=== PATIENT | female | born 1950 | race Two or more races ===

== ENCOUNTER 2020-03-02 14:49 | Emergency (ER) | payer MEDICARE ==
[~2020-03-02] VITALS: Ht 157.5 cm; Wt 81.8 kg
--- NOTE | 2020-03-02 15:20 | NUR ---
TASK RN: PT WC'D TO ROOM 4 W/ C/O LOWER R HIP/LEG PAIN STARTED 3 WEEKS AGO AND WORSENED OVER THE LAST 2 DAYS. PT STATES IT STARTED W/ BILAT HIP PAIN BUT NOW IS ONLY R SIDED. PT STATES SHE INITIALLY BENT DOWN TO PICK SOMETHING UP AND THAT'S WHEN THE PAIN STARTED. STATES THAT THIS AM SHE HEARD A CLICKING SOUND LIKE SOMETHING WAS MOVING IN HER LOWER BACK. STATES PAIN RADIATES TO R LEG AND UPPER BACK. PT DENIES ANY OTHER SX. [facility] NADN. MONITORS APPLIED. WARM BLANKET PROVIDED. PT POSITIONED ON GURNEY FOR COMFORT.
--- NOTE | 2020-03-02 15:45 | NUR ---
CONTACT WITH PT, NO ACUTE DISTRESS NOTED. PT LAYING ON GURNEY. PTS DAUGHTER AT BEDSIDE. WAITING FOR ORDERS. NO NEEDS EXPRESSED AT THIS TIME.
[2020-03-02] MEDS ORDERED: DIAZEPAM 5 MG TABLET ONE (15:47)
[2020-03-02] MEDS ORDERED: KETOROLAC 30 MG/1 ML ONE (15:47)
[2020-03-02] MEDS ORDERED: KETOROLAC 30 MG/1 ML IM ONE (16:00)
[2020-03-02] MEDS ORDERED: DIAZEPAM 5 MG TABLET PO ONE (16:00)
--- NOTE | 2020-03-02 17:05 | NUR ---
PT WITH PAIN DECREASED TO 2/10, ABLE TO MOVE EASIER. NO IV TO DC, REVIEWED DC INSTRUCTIONS WITH PT AND PTS DAUGHTER. UNDERSTANDING VERBALIZED.
[2020-03-02 17:10] VITALS: BP 127/81
== END 2020-03-02 17:12 | disposition home or self-care (01) ==
LOC: ED 15:35
DX: S39.012A Strain of muscle, fascia and tendon of lower back, initial encounter (principal); M51.36 Other intervertebral disc degeneration, lumbar region; W45.8XXA Other foreign body or object entering through skin, initial encounter; Y93.89 Activity, other specified; Y92.89 Other specified places as the place of occurrence of the external cause; Y99.8 Other external cause status
CPT/HCPCS: 72110; 96372; 99283; J1885

== ENCOUNTER 2020-08-29 12:46 | Emergency (ER) | payer MEDICARE ==
[~2020-08-29] VITALS: Ht 160 cm; Wt 81.5 kg
--- NOTE | 2020-08-29 13:28 | NUR ---
BREAK RN: DAVID AT BEDSIDE FOR EVALUATION.
--- NOTE | 2020-08-29 13:29 | NUR ---
BREAK RN: PATIENT DIAGNOSED WITH COVID . PATIENT C/O COUGH, SOB AND FATIGUE. NADN, PATIENT'S O2 SATURATION IS 92% ON RA. CALL LIGHT WITHIN REACH.
--- NOTE | 2020-08-29 13:46 | NUR ---
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
[2020-08-29 14:10] LABS: ALANINE AMINOTRANSFERASE 114 U/L (12-78); ANION GAP 10 mmol/L (5-15); CALCIUM 8.7 mg/dL (8.5-10.1); CHLORIDE 105 mmol/L (98-107); CREATININE 0.61 mg/dL (0.55-1.02)
[2020-08-29 14:13] LABS: ALKALINE PHOSPHATASE 92 U/L (45-117); BILIRUBIN,TOTAL 0.5 mg/dL (0.2-1.0); TOTAL PROTEIN 7.3 g/dL (6.4-8.2)
[2020-08-29 14:14] LABS: BASOPHILS % (AUTO) 0 % (0-1); EOSINOPHILS % (AUTO) 0 % (1-7); LYMPHOCYTES % (AUTO) 25 % (22-44); MEAN CORPUSCULAR HEMOGLOBIN 31.1 pg (27.0-34.8); MEAN CORPUSCULAR HGB CONC 33.6 g/dL (32.4-35.8); MEAN PLATELET VOLUME 8.9 fL (7.4-10.4); MONOCYTES % (AUTO) 12 % (2-9); NEUTROPHILS % (AUTO) 64 % (42-75); PLATELET COUNT 172 x10^3/uL (130-400); RED BLOOD COUNT 4.67 x10^6/uL (3.82-5.3); RED CELL DISTRIBUTION WIDTH 12.9 % (9.6-15.2)
[2020-08-29 14:16] LABS: MD NO
[2020-08-29 15:40] VITALS: BP 127/21
--- NOTE | 2020-08-29 15:48 | NUR ---
Patient/Caregiver given discharge instructions and they have confirmed that they understand the instructions. Patient ambulatory with steady gait.
== END 2020-08-29 15:49 | disposition home or self-care (01) ==
LOC: ED 15:30
DX: U07.1 COVID-19 (principal); J06.9 Acute upper respiratory infection, unspecified; J12.9 Viral pneumonia, unspecified; R50.9 Fever, unspecified; R06.02 Shortness of breath; R53.83 Other fatigue
CPT/HCPCS: 36415; 71045; 80053; 83605; 84145; 85025; 86140; 87040; 93005; 99285

== ENCOUNTER 2020-08-29 22:26 | Inpatient (IN) | payer MEDICARE ==
[~2020-08-29] VITALS: Ht 160 cm; Wt 80.6 kg
--- NOTE | 2020-08-29 22:45 | NUR ---
pt moved to room 35 via wheelchair. placed on cr monitor, and remains on o2 nc 2 lpm for low o2 sats at home and in triage. less than 90%. MD to bedside to eval pt.
[2020-08-29] MEDS ORDERED: CEFTRIAXONE PMX 1GM/50ML 50 ML IVPB ONE (23:00)
[2020-08-29] MEDS ORDERED: DEXAMETHASONE 4 MG/ML, 1ML IV ONE (23:00)
[2020-08-29] MEDS ORDERED: AZITHROMYCIN 500 MG in SODIUM CHLORIDE 0.9% 250 ML IV ONE (23:00)
[2020-08-29] MEDS ORDERED: SODIUM CHLORIDE 0.9% 1,000 ML IV ONE (23:00)
[2020-08-29] MEDS ORDERED: SODIUM CHLORIDE FLUSH 10ML SYR IVF PRN (23:00)
--- NOTE | 2020-08-29 23:07 | NUR ---
piv started to right hand x1 attempt. pt tolerated well, piv flushed easy, and no swelling, taped and secured.
[2020-08-29] MEDS ORDERED: CEFTRIAXONE PMX 1GM/50ML 50 ML ONE (23:11)
[2020-08-29] MEDS ORDERED: DEXAMETHASONE 4 MG/ML, 5ML ONE (23:11)
--- NOTE | 2020-08-29 23:19 | NUR ---
antibiotics started via PIV, pt awake and alert, no acute distress at this time.
[2020-08-29] MEDS ORDERED: PHARMACY MAY ADJ FOR RENAL FX MC PRN (23:30)
[2020-08-29] MEDS ORDERED: ONDANSETRON 2MG/ML, 2ML IVPush PRN (23:30)
[2020-08-29] MEDS ORDERED: MELATONIN 5 MG TABLET PO PRN (23:30)
[2020-08-29] MEDS ORDERED: PROCHLORPERAZINE 10MG TABLET PO PRN (23:30)
[2020-08-29] MEDS ORDERED: LIDODERM 5% PATCH TD PRN (23:30)
[2020-08-29] MEDS ORDERED: LABETALOL 5MG/ML, 20ML IVPush PRN (23:30)
[2020-08-29] MEDS ORDERED: DOCUSATE 100 MG CAPSULE PO PRN (23:30)
--- NOTE | 2020-08-29 23:46 | NUR ---
report called to floor RN, and pt a&ox4, calm and comfortable, good aeration, and good oxygenation, remains on o2 2lpm, and transported to floor via gurney.
[2020-08-29 23:57] VITALS: BP 114/78
[2020-08-30 00:23] VITALS: BP 114/78
[2020-08-30] MEDS: HEPARIN 5,000 UNITS/ML, 1ML SQ SCH ×3 (00:25→16:00)
[2020-08-30 02:00] LABS: RAPID INFLUENZA A Negative (Negative); RAPID INFLUENZA B Negative (Negative)
[2020-08-30 05:46] LABS: BASOPHILS % (AUTO) 1 % (0-1); EOSINOPHILS % (AUTO) 0 % (1-7); LYMPHOCYTES % (AUTO) 14 % (22-44); MEAN CORPUSCULAR HEMOGLOBIN 31.4 pg (27.0-34.8); MEAN CORPUSCULAR HGB CONC 33.9 g/dL (32.4-35.8); MEAN PLATELET VOLUME 8.7 fL (7.4-10.4); MONOCYTES % (AUTO) 6 % (2-9); NEUTROPHILS % (AUTO) 79 % (42-75); PLATELET COUNT 175 x10^3/uL (130-400); RED BLOOD COUNT 4.43 x10^6/uL (3.82-5.3); RED CELL DISTRIBUTION WIDTH 12.9 % (9.6-15.2)
[2020-08-30 05:52] LABS: MD NO
[2020-08-30 05:58] LABS: INTERNATIONAL NORMALIZED RATIO 0.99 (0.93-1.1); PROTHROMBIN TIME 10.5 Seconds (9.6-11.5)
[2020-08-30 06:02] LABS: ALBUMIN 2.7 g/dL (3.4-5.0); ANION GAP 8 mmol/L (5-15); CALCIUM 8.4 mg/dL (8.5-10.1); CHLORIDE 108 mmol/L (98-107)
[2020-08-30 06:13] LABS: ALANINE AMINOTRANSFERASE 101 U/L (12-78); ALKALINE PHOSPHATASE 89 U/L (45-117); BILIRUBIN,TOTAL 0.4 mg/dL (0.2-1.0); CREATINE KINASE, TOTAL 29 U/L (26-192); CREATININE 0.53 mg/dL (0.55-1.02); TOTAL PROTEIN 7.2 g/dL (6.4-8.2)
[2020-08-30 06:45] VITALS: BP 116/76
[2020-08-30 06:45] LABS: HCT (SEDRATE) 41.1 % (34.6-47.8)
[2020-08-30] MEDS: ZINC SULFATE 220 MG CAPSULE PO SCH (08:45)
[2020-08-30] MEDS: CHOLECALCIFEROL 5,000u TAB PO SCH (08:45)
[2020-08-30] MEDS: DEXAMETHASONE 4 MG/ML, 1ML IVPush SCH (08:45)
[2020-08-30] MEDS: ASCORBIC ACID 500 MG TABLET PO SCH ×2 (08:45→21:12)
[2020-08-30 12:15] VITALS: BP 119/79
[2020-08-30 18:53] VITALS: BP 113/61
[2020-08-30] MEDS: CEFTRIAXONE PMX 1GM/50ML 50 ML IVPB SCH (21:13)
[2020-08-31] MEDS: HEPARIN 5,000 UNITS/ML, 1ML SQ SCH ×4 (00:45→22:54)
[2020-08-31 01:21] VITALS: BP 124/74
[2020-08-31 05:39] LABS: BASOPHILS % (AUTO) 0 % (0-1); EOSINOPHILS % (AUTO) 0 % (1-7); LYMPHOCYTES % (AUTO) 16 % (22-44); MD NO; MEAN CORPUSCULAR HEMOGLOBIN 31.3 pg (27.0-34.8); MEAN CORPUSCULAR HGB CONC 33.7 g/dL (32.4-35.8); MEAN PLATELET VOLUME 8.9 fL (7.4-10.4); MONOCYTES % (AUTO) 11 % (2-9); NEUTROPHILS % (AUTO) 73 % (42-75); PLATELET COUNT 217 x10^3/uL (130-400); RED CELL DISTRIBUTION WIDTH 13.1 % (9.6-15.2)
[2020-08-31 05:41] LABS: HCT (SEDRATE) 38.2 % (34.6-47.8)
[2020-08-31 05:48] LABS: ALANINE AMINOTRANSFERASE 79 U/L (12-78); ALBUMIN 2.4 g/dL (3.4-5.0); ANION GAP 7 mmol/L (5-15); CALCIUM 8.2 mg/dL (8.5-10.1); CHLORIDE 109 mmol/L (98-107); INTERNATIONAL NORMALIZED RATIO 1.02 (0.93-1.1); PROTHROMBIN TIME 10.8 Seconds (9.6-11.5)
[2020-08-31 05:56] LABS: ALKALINE PHOSPHATASE 85 U/L (45-117); BILIRUBIN,TOTAL 0.4 mg/dL (0.2-1.0); CHOL/HDL RATIO 5.2; CHOLESTEROL, TOTAL 146 mg/dL (140-239); CREATINE KINASE, TOTAL 26 U/L (26-192); CREATININE 0.58 mg/dL (0.55-1.02); HDL CHOL % 19 % (28-40); HDL CHOLESTEROL (DIRECT) 28 mg/dL (40-60); LDL CHOLESTEROL,CALCULATED 99 mg/dL (54-169); LDL/HDL RATIO 3.5 (0.5-3.0); TOTAL PROTEIN 6.5 g/dL (6.4-8.2); TRIGLYCERIDES 96 mg/dL (50-200); VLDL CHOLESTEROL 19 mg/dL (0-25)
[2020-08-31 08:12] VITALS: BP 148/90
[2020-08-31] MEDS: ZINC SULFATE 220 MG CAPSULE PO SCH (08:17)
[2020-08-31] MEDS: DEXAMETHASONE 4 MG/ML, 1ML IVPush SCH (08:17)
[2020-08-31] MEDS: CHOLECALCIFEROL 5,000u TAB PO SCH (08:17)
[2020-08-31] MEDS: ASCORBIC ACID 500 MG TABLET PO SCH ×2 (08:17→20:48)
[2020-08-31] MEDS ORDERED: REMDESIVIR 200 MG in SODIUM CHLORIDE 0.9% 250 ML IVPB ONE (10:00)
[2020-08-31 13:11] VITALS: BP 138/84
[2020-08-31 20:20] VITALS: BP 157/96
[2020-08-31] MEDS: CEFTRIAXONE PMX 1GM/50ML 50 ML IVPB SCH (22:09)
[2020-09-01 01:16] VITALS: BP 155/88
[2020-09-01 06:02] LABS: BASOPHILS % (AUTO) 0 % (0-1); EOSINOPHILS % (AUTO) 0 % (1-7); LYMPHOCYTES % (AUTO) 22 % (22-44); MEAN CORPUSCULAR HEMOGLOBIN 31.4 pg (27.0-34.8); MEAN CORPUSCULAR HGB CONC 33.7 g/dL (32.4-35.8); MEAN PLATELET VOLUME 8.5 fL (7.4-10.4); MONOCYTES % (AUTO) 11 % (2-9); NEUTROPHILS % (AUTO) 66 % (42-75); PLATELET COUNT 225 x10^3/uL (130-400); RED BLOOD COUNT 4.22 x10^6/uL (3.82-5.3); RED CELL DISTRIBUTION WIDTH 13.2 % (9.6-15.2)
[2020-09-01 06:03] LABS: HCT (SEDRATE) 39.5 % (34.6-47.8)
[2020-09-01 06:07] LABS: ALANINE AMINOTRANSFERASE 74 U/L (12-78); ALBUMIN 2.4 g/dL (3.4-5.0); ANION GAP 7 mmol/L (5-15); CALCIUM 8.3 mg/dL (8.5-10.1); CHLORIDE 110 mmol/L (98-107); CREATININE 0.63 mg/dL (0.55-1.02)
[2020-09-01 06:13] LABS: INTERNATIONAL NORMALIZED RATIO 1.02 (0.93-1.1); PROTHROMBIN TIME 10.8 Seconds (9.6-11.5)
[2020-09-01 06:16] LABS: ALKALINE PHOSPHATASE 77 U/L (45-117); BILIRUBIN,TOTAL 0.3 mg/dL (0.2-1.0); CREATINE KINASE, TOTAL 24 U/L (26-192); TOTAL PROTEIN 6.4 g/dL (6.4-8.2)
[2020-09-01 06:23] LABS: MD NO
[2020-09-01 08:03] VITALS: BP 168/99
[2020-09-01] MEDS ORDERED: POTASSIUM CHLORIDE 20 MEQ TAB.ER.PRT PO ONE (08:30)
[2020-09-01] MEDS: CHOLECALCIFEROL 5,000u TAB PO SCH (10:23)
[2020-09-01] MEDS: ASCORBIC ACID 500 MG TABLET PO SCH ×2 (10:23→20:24)
[2020-09-01] MEDS: HEPARIN 5,000 UNITS/ML, 1ML SQ SCH ×2 (10:23→17:22)
[2020-09-01] MEDS: REMDESIVIR 100 MG in SODIUM CHLORIDE 0.9% 250 ML IVPB SCH (10:23)
[2020-09-01] MEDS: DEXAMETHASONE 4 MG/ML, 1ML IVPush SCH (10:23)
[2020-09-01] MEDS: ZINC SULFATE 220 MG CAPSULE PO SCH (10:25)
[2020-09-01 12:20] VITALS: BP 147/90
[2020-09-01 20:19] VITALS: BP 144/88
[2020-09-01] MEDS: CEFTRIAXONE PMX 1GM/50ML 50 ML IVPB SCH (22:49)
[2020-09-01] MEDS ORDERED: OMNIPAQUE 350 MG/ML, 100ML BOTTLE ONE (23:14)
[2020-09-02 00:26] VITALS: BP 136/84
[2020-09-02] MEDS: ENOXAPARIN 80 MG/0.8 ML SQ SCH ×2 (04:22→15:52)
[2020-09-02 05:48] LABS: INTERNATIONAL NORMALIZED RATIO 1.1 (0.93-1.1); PROTHROMBIN TIME 11.7 Seconds (9.6-11.5)
[2020-09-02 05:50] LABS: BASOPHILS % (AUTO) 0 % (0-1); EOSINOPHILS % (AUTO) 0 % (1-7); HCT (SEDRATE) 39.9 % (34.6-47.8); LYMPHOCYTES % (AUTO) 24 % (22-44); MEAN CORPUSCULAR HEMOGLOBIN 31.3 pg (27.0-34.8); MEAN CORPUSCULAR HGB CONC 33.5 g/dL (32.4-35.8); MONOCYTES % (AUTO) 15 % (2-9); NEUTROPHILS % (AUTO) 61 % (42-75); PLATELET COUNT 261 x10^3/uL (130-400); RED BLOOD COUNT 4.29 x10^6/uL (3.82-5.3); RED CELL DISTRIBUTION WIDTH 13.2 % (9.6-15.2)
[2020-09-02 05:52] LABS: ALBUMIN 2.5 g/dL (3.4-5.0); ANION GAP 6 mmol/L (5-15); CALCIUM 8.3 mg/dL (8.5-10.1); CHLORIDE 107 mmol/L (98-107)
[2020-09-02 06:00] LABS: ALANINE AMINOTRANSFERASE 91 U/L (12-78); ALKALINE PHOSPHATASE 82 U/L (45-117); BILIRUBIN,TOTAL 0.4 mg/dL (0.2-1.0); CREATINE KINASE, TOTAL 22 U/L (26-192); TOTAL PROTEIN 6.6 g/dL (6.4-8.2)
[2020-09-02 06:09] LABS: MD NO
[2020-09-02 06:47] VITALS: BP 145/88
[2020-09-02] MEDS: ASCORBIC ACID 500 MG TABLET PO SCH ×2 (09:19→22:00)
[2020-09-02] MEDS: DEXAMETHASONE 4 MG/ML, 1ML IVPush SCH (09:19)
[2020-09-02] MEDS: CHOLECALCIFEROL 5,000u TAB PO SCH (09:19)
[2020-09-02] MEDS: ZINC SULFATE 220 MG CAPSULE PO SCH (09:19)
[2020-09-02] MEDS: REMDESIVIR 100 MG in SODIUM CHLORIDE 0.9% 250 ML IVPB SCH (10:49)
[2020-09-02 12:05] VITALS: BP 160/98
[2020-09-02 20:02] VITALS: BP 152/88
[2020-09-02] MEDS: CEFTRIAXONE PMX 1GM/50ML 50 ML IVPB SCH (21:59)
[2020-09-03] MEDS ORDERED: BENZONATATE 100 MG CAPSULE PO PRN
[2020-09-03 01:02] VITALS: BP 154/90
[2020-09-03] MEDS: ENOXAPARIN 80 MG/0.8 ML SQ SCH ×2 (03:35→16:05)
[2020-09-03 06:07] LABS: HCT (SEDRATE) 40.8 % (34.6-47.8)
[2020-09-03 06:08] LABS: BASOPHILS % (AUTO) 0 % (0-1); EOSINOPHILS % (AUTO) 0 % (1-7); LYMPHOCYTES % (AUTO) 30 % (22-44); MEAN CORPUSCULAR HEMOGLOBIN 31.2 pg (27.0-34.8); MEAN CORPUSCULAR HGB CONC 33.6 g/dL (32.4-35.8); MEAN PLATELET VOLUME 8.9 fL (7.4-10.4); MONOCYTES % (AUTO) 15 % (2-9); NEUTROPHILS % (AUTO) 55 % (42-75); PLATELET COUNT 277 x10^3/uL (130-400); RED BLOOD COUNT 4.36 x10^6/uL (3.82-5.3); RED CELL DISTRIBUTION WIDTH 13.3 % (9.6-15.2)
[2020-09-03 06:09] LABS: MD NO
[2020-09-03 06:19] LABS: INTERNATIONAL NORMALIZED RATIO 1.18 (0.93-1.1); PROTHROMBIN TIME 12.5 Seconds (9.6-11.5)
[2020-09-03 06:21] LABS: ALBUMIN 2.6 g/dL (3.4-5.0); ANION GAP 7 mmol/L (5-15); CALCIUM 8.6 mg/dL (8.5-10.1); CHLORIDE 106 mmol/L (98-107)
[2020-09-03 06:35] VITALS: BP 147/91
[2020-09-03 06:37] LABS: ALANINE AMINOTRANSFERASE 71 U/L (12-78); ALKALINE PHOSPHATASE 79 U/L (45-117); BILIRUBIN,TOTAL 0.4 mg/dL (0.2-1.0); CREATINE KINASE, TOTAL 18 U/L (26-192); CREATININE 0.55 mg/dL (0.55-1.02); TOTAL PROTEIN 6.6 g/dL (6.4-8.2)
[2020-09-03] MEDS: CHOLECALCIFEROL 5,000u TAB PO SCH (10:47)
[2020-09-03] MEDS: ZINC SULFATE 220 MG CAPSULE PO SCH (10:47)
[2020-09-03] MEDS: ASCORBIC ACID 500 MG TABLET PO SCH ×2 (10:47→21:13)
[2020-09-03] MEDS: DEXAMETHASONE 4 MG/ML, 1ML IVPush SCH (10:48)
[2020-09-03] MEDS: REMDESIVIR 100 MG in SODIUM CHLORIDE 0.9% 250 ML IVPB SCH (10:48)
[2020-09-03 12:11] VITALS: BP 152/91
[2020-09-03] MEDS: OMEPRAZOLE 20 MG CAPSULE.DR PO SCH (16:05)
[2020-09-03 19:56] VITALS: BP 144/89
[2020-09-03] MEDS: CEFTRIAXONE PMX 1GM/50ML 50 ML IVPB SCH (21:14)
[2020-09-04 01:42] VITALS: BP 139/84
[2020-09-04] MEDS: ENOXAPARIN 80 MG/0.8 ML SQ SCH (03:54)
[2020-09-04] MEDS: OMEPRAZOLE 20 MG CAPSULE.DR PO SCH (05:54)
[2020-09-04 06:44] LABS: BASOPHILS % (AUTO) 0 % (0-1); EOSINOPHILS % (AUTO) 0 % (1-7); LYMPHOCYTES % (AUTO) 32 % (22-44); MEAN CORPUSCULAR HGB CONC 33.7 g/dL (32.4-35.8); MONOCYTES % (AUTO) 14 % (2-9); NEUTROPHILS % (AUTO) 54 % (42-75); PLATELET COUNT 294 x10^3/uL (130-400); RED BLOOD COUNT 4.39 x10^6/uL (3.82-5.3)
[2020-09-04 06:45] LABS: HCT (SEDRATE) 40.2 % (34.6-47.8)
[2020-09-04 06:46] LABS: MD NO
[2020-09-04 06:53] LABS: INTERNATIONAL NORMALIZED RATIO 1.14 (0.93-1.1); PROTHROMBIN TIME 12.1 Seconds (9.6-11.5)
[2020-09-04 06:55] LABS: ALANINE AMINOTRANSFERASE 57 U/L (12-78); ALBUMIN 2.6 g/dL (3.4-5.0); ANION GAP 6 mmol/L (5-15); CALCIUM 8.6 mg/dL (8.5-10.1); CHLORIDE 106 mmol/L (98-107); CREATININE 0.54 mg/dL (0.55-1.02)
[2020-09-04 07:01] LABS: ALKALINE PHOSPHATASE 65 U/L (45-117); BILIRUBIN,TOTAL 0.4 mg/dL (0.2-1.0); CREATINE KINASE, TOTAL 17 U/L (26-192); TOTAL PROTEIN 6.6 g/dL (6.4-8.2)
[2020-09-04 07:51] VITALS: BP 134/85
[2020-09-04] MEDS ORDERED: ASCORBIC ACID 250 MG TAB ONE (10:09)
[2020-09-04] MEDS: ASCORBIC ACID 500 MG TABLET PO SCH (10:14)
[2020-09-04] MEDS: CHOLECALCIFEROL 5,000u TAB PO SCH (10:14)
[2020-09-04] MEDS: ZINC SULFATE 220 MG CAPSULE PO SCH (10:14)
[2020-09-04] MEDS: REMDESIVIR 100 MG in SODIUM CHLORIDE 0.9% 250 ML IVPB SCH (10:16)
[2020-09-04] MEDS: DEXAMETHASONE 4 MG/ML, 1ML IVPush SCH (10:17)
[2020-09-04] MEDS ORDERED: ASCO500T9 PO (14:42)
[2020-09-04] MEDS ORDERED: CHOL500045 PO (14:42)
[2020-09-04] MEDS ORDERED: ASPI325T17 PO (14:42)
[2020-09-04] MEDS ORDERED: ZINC220C7 PO (14:42)
[2020-09-04] MEDS ORDERED: OMEP-110 PO (14:42)
[2020-09-04] MEDS ORDERED: DEXA4TAB66 PO (14:42)
[2020-09-04 15:59] VITALS: BP 133/82
== END 2020-09-04 16:20 | disposition home or self-care (01) | DRG 177 ==
LOC: ED 22:52 → EDIP 23:01 → 4EST 23:49
PROVIDERS: ADMIT Internal Medicine; ATTEND Internal Medicine
PROC: XW033E5 Introduction of Remdesivir Anti-infective into Peripheral Vein, Percutaneous Approach, New Technology Group 5 (ICD-10-PCS; principal; 2020-08-31)
DX: U07.1 COVID-19 (principal); J96.01 Acute respiratory failure with hypoxia; J12.82 Pneumonia due to coronavirus disease 2019; D68.69 Other thrombophilia; E66.9 Obesity, unspecified; Z68.31 Body mass index [BMI] 31.0-31.9, adult; E87.6 Hypokalemia; Z80.0 Family history of malignant neoplasm of digestive organs; Z83.3 Family history of diabetes mellitus; R74.01 Elevation of levels of liver transaminase levels
CPT/HCPCS: 36415; 71045; 71275; 76700; 80053; 80061; 80074; 82550; 82607; 82728; 83690; 83735; 84100; 85025; 85379; 85384; 85610; 85651; 85730; 86140; 87400; 93970; 96374; 96375; 99285; G0378; J0696; J1100; J1644; J1650; J2405; Q9967; J7030; J7050